=== PATIENT | male | born 1950 | race Caucasian/White ===

== ENCOUNTER 2018-04-26 09:42 | Emergency (ER) | payer MEDICARE ==
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
[2018-04-26] MEDS ORDERED: DEXAMETHASONE 10 MG/ML VIAL PO STA (10:37)
[2018-04-26] MEDS ORDERED: MECLIZINE 12.5 MG TABLET PO STA (10:37)
[2018-04-26 10:59] LABS: BASOPHILS # (AUTO) 0.1 10^3/uL (0.0-0.1); BASOPHILS % (AUTO) 1.5 %; EOSINOPHILS # (AUTO) 0.3 10^3/uL (0.0-0.7); EOSINOPHILS % (AUTO) 3.9 %; LYMPHOCYTES # (AUTO) 2.2 10^3/uL (1.5-3.5); LYMPHOCYTES % (AUTO) 29.5 %; MEAN CORPUSCULAR HGB CONC 34.7 g/dL (32.0-36.0); MEAN CORPUSCULAR VOLUME 92.3 fL (80.0-94.0); MEAN PLATELET VOLUME 7.6 fL (7.4-11.4); MONOCYTES # (AUTO) 0.4 10^3/uL (0.0-1.0); MONOCYTES % (AUTO) 5.9 %; NEUTROPHILS # (AUTO) 4.3 10^3/uL (1.5-6.6); NEUTROPHILS % (AUTO) 59.2 %; PLT - PLATELET COUNT 251 10^3/uL (130-450); RED BLOOD COUNT 5.01 10^6/uL (4.70-6.10); RED CELL DISTRIBUTION WIDTH 12.8 % (12.0-15.0); WHITE BLOOD COUNT 7.3 x10^3/uL (4.8-10.8)
[2018-04-26 11:09] LABS: ALBUMIN 4.6 g/dL (3.2-5.5); ALBUMIN/GLOBULIN RATIO 1.1 (1.0-2.2); BILIRUBIN,TOTAL 0.8 mg/dL (0.2-1.0); CALCIUM 9.2 mg/dL (8.5-10.3); CREATININE 0.8 mg/dL (0.6-1.2); MAGNESIUM 1.9 mg/dL (1.7-2.8); TOTAL PROTEIN 8.7 g/dL (6.7-8.2)
--- NOTE | 2018-04-26 11:52 | CT Report ---
Reason: intermittent Procedure Date: 04/26/2018 Accession Number: [id number] / [id number] Procedure: CT - Head W/O CPT Code: FULL RESULT: EXAM: CT HEAD EXAM DATE: 04/26/2018 11:31 AM. CLINICAL HISTORY: Intermittent. COMPARISON: None. TECHNIQUE: Multiaxial CT images were obtained from the foramen magnum to the vertex. Reformats: Coronal. IV contrast: None. In accordance with CT protocol optimization, one or more of the following dose reduction techniques were utilized for this exam: automated exposure control, adjustment of mA and/or KV based on patient size, or use of iterative reconstructive technique. FINDINGS: Parenchyma: No intraparenchymal hemorrhage. No evidence of mass, midline shift, or CT findings of infarction. Mercado-white differentiation is distinct. There is mild parenchymal volume loss Extraaxial Spaces: Normal for age. No subdural or epidural collections identified. Ventricles: Normal in size and position. Sinuses and Orbits: Imaged paranasal sinuses and orbits show no significant abnormality. Likely postsurgical change of left mastoids. Bones: No evidence of fracture or calvarial defect. IMPRESSION: No evidence of acute intracranial process. Likely postsurgical left mastoids. Correlate clinically. RADIA
[2018-04-26 12:03] VITALS: BP 130/86
== END 2018-04-26 12:16 | disposition home or self-care (01) ==
LOC: ED 09:42
DX: H81.10 Benign paroxysmal vertigo, unspecified ear (principal); T63.441A Toxic effect of venom of bees, accidental (unintentional), initial encounter; R94.31 Abnormal electrocardiogram [ECG] [EKG]
CPT/HCPCS: 36415; 70450; 80053; 83690; 83735; 84443; 85025; 93005; 99283; A9270

== ENCOUNTER 2018-10-29 07:38 | Day surgery (SDC) | payer OTHER ==
[2018-10-29] MEDS ORDERED: LACTATED RINGERS 1,000 ML IV ONE (08:06)
[2018-10-29] MEDS ORDERED: fentaNYL 250 MCG/5 ML VIAL IVP ONE (08:51)
[2018-10-29] MEDS ORDERED: MIDAZOLAM 2 MG/2 ML VIAL IVP ONE (08:51)
[2018-10-29 09:48] VITALS: BP 106/67
== END 2018-10-29 07:39 | disposition home or self-care (01) ==
LOC: SDS 07:38
PROVIDERS: ATTEND Surgery
PROC: 0DBL8ZX Excision of Transverse Colon, Via Natural or Artificial Opening Endoscopic, Diagnostic (ICD-10-PCS; 2018-10-29)
PROC: 0DBH8ZX Excision of Cecum, Via Natural or Artificial Opening Endoscopic, Diagnostic (ICD-10-PCS; principal; 2018-10-29 08:45)
DX: Z12.11 Encounter for screening for malignant neoplasm of colon (principal); Q27.33 Arteriovenous malformation of digestive system vessel; D12.6 Benign neoplasm of colon, unspecified; K64.8 Other hemorrhoids; K55.8 Other vascular disorders of intestine; K57.30 Diverticulosis of large intestine without perforation or abscess without bleeding; I10 Essential (primary) hypertension; F17.210 Nicotine dependence, cigarettes, uncomplicated
CPT/HCPCS: 45380; J3010; J7120

== ENCOUNTER 2020-01-23 11:14 | Emergency (ER) | payer OTHER ==
[2020-01-23 11:54] LABS: BASOPHILS # (AUTO) 0.1 10^3/uL (0.0-0.1); BASOPHILS % (AUTO) 0.8 %; EOSINOPHILS # (AUTO) 0.1 10^3/uL (0.0-0.7); EOSINOPHILS % (AUTO) 1.5 %; HGB - HEMOGLOBIN 14.6 g/dL (14.0-18.0); LYMPHOCYTES # (AUTO) 1.2 10^3/uL (1.5-3.5); LYMPHOCYTES % (AUTO) 13.7 %; MEAN CORPUSCULAR HEMOGLOBIN 30.2 pg (27.0-31.0); MEAN CORPUSCULAR HGB CONC 33.2 g/dL (32.0-36.0); MEAN CORPUSCULAR VOLUME 90.9 fL (80.0-94.0); MONOCYTES # (AUTO) 0.6 10^3/uL (0.0-1.0); MONOCYTES % (AUTO) 6.6 %; NEUTROPHILS # (AUTO) 6.5 10^3/uL (1.5-6.6); NEUTROPHILS % (AUTO) 77.2 %; PLT - PLATELET COUNT 184 10^3/uL (130-450); RED BLOOD COUNT 4.84 10^6/uL (4.70-6.10); RED CELL DISTRIBUTION WIDTH 12.9 % (12.0-15.0); WHITE BLOOD COUNT 8.5 x10^3/uL (4.8-10.8)
--- NOTE | 2020-01-23 11:55 | ED Physician Documentation ---
History of Present Illness - Stated complaint Stated Complaint: UPPER ABD PX/WEAKNESS - Chief complaint Chief Complaint: Abd Pain - History obtained from History obtained from: Patient - History of Present Illness Pain level max: 6 Pain level now: 3 Worsened by: Nothing makes it worse - Additonal information Additional information: 69-year-old male presents to the emergency department with epigastric pain for the past 3 to 6 months. He states it is intermittent, comes and goes. Saw his doctor via video today and was sent to the emergency department for evaluation. No vomiting. Intermittent. Occasionally the pain radiates to the left abdomen. Seems to be better with eating. Has not had similar symptoms previously. No changes in his medications. Does smoke cigarettes but does not use alcohol. Review of Systems Ten Systems: 10 systems reviewed and negative Constitutional: denies: Fever, Chills PD PAST MEDICAL HISTORY - Past Medical History Cardiovascular: None Respiratory: None Neuro: None Endocrine/Autoimmune: None HEENT: Other Derm: Psoriasis - Past Surgical History Past Surgical History: Yes HEENT: Other - Present Medications Home Medications: Ambulatory Orders Medication Instructions Recorded Confirmed Etanercept [Enbrel] 10/29/18 Metoprolol Tartrate 1 BID 10/29/18 amLODIPine [Norvasc] 1 DAILY 10/29/18 - Allergies Allergies/Adverse Reactions: Allergies Allergy/AdvReac Type Severity Reaction Status Date / Time opioids AdvReac Unknown Uncoded 10/29/18 08:01 - Social History Does the pt smoke?: Yes Smoking Status: Current every day smoker Does the pt drink ETOH?: No Does the pt have substance abuse?: No - Immunizations Immunizations are current?: Yes - POLST Patient has POLST: No PD ED PE NORMAL - Vitals Vital signs reviewed: Yes - General General: Alert and oriented X 3, No acute distress - HEENT HEENT: Moist mucous membranes - Neck Neck: Supple, no meningeal sign - Cardiac Cardiac: RRR - Respiratory Respiratory: No respiratory distress, Clear bilaterally - Abdomen Abdomen: Soft, Non tender, Non distended - Back Back: No spinal TTP - Derm Derm: Warm and dry - Extremities Extremities: No edema - Neuro Neuro: Alert and oriented X 3 - Psych Psych: Normal mood, Normal affect Results - Vitals Vitals: Vital Signs - 24 hr 01/23/20 01/23/20 11:20 13:24 Temperature 36.3 C L Heart Rate 96 90 Respiratory 16 16 Rate Blood Pressure 145/84 H 149/97 H O2 Saturation 100 98 Oxygen O2 Source Room air - Labs Labs: Laboratory Tests 01/23/20 01/23/20 01/23/20 11:35 11:35 11:35 WBC 8.5 RBC 4.84 Hgb 14.6 Hct 44.0 MCV 90.9 MCH 30.2 MCHC 33.2 RDW 12.9 Plt Count 184 MPV 10.0 Neut # (Auto) 6.5 Lymph # (Auto) 1.2 L [place] # (Auto) 0.6 Eos # (Auto) 0.1 Baso # (Auto) 0.1 Absolute Nucleated RBC 0.00 Nucleated RBC % 0.0 PT 14.7 H INR 1.3 H Sodium 136 Potassium 3.6 Chloride 102 Carbon Dioxide 27 Anion Gap 7.0 BUN 20 Creatinine 0.8 Estimated GFR (MDRD) 96 Glucose 150 H Calcium 9.0 Total Bilirubin 1.0 AST 31 ALT 26 Alkaline Phosphatase 154 H Total Protein 8.1 Albumin 4.2 Globulin 3.9 Albumin/Globulin Ratio 1.1 Lipase 43 - Rads (name of study) CT abdomen pelvis Radiology: Prelim report reviewed, EMP read contemporaneously PD MEDICAL DECISION MAKING - ED course Complexity details: reviewed results, re-evaluated patient, considered differential, d/w patient, d/w middleware consultant ED course: 69-year-old male with abdominal pain for the past several months. History of hep C, but states he completed treatment for this. Found to have a large liver mass, likely hepatocellular carcinoma. Also has a portal vein thrombosis. Discussed the case with his primary care provider, Dr. Urena at the [facility] who will arrange follow-up today and call him this afternoon. Patient is comfortable with this plan. We will hold anticoagulation until oncology has a chance to review the chart to determine if they would like a biopsy before anticoagulation starts. Patient counseled regarding signs and symptoms for which I believe and urgent re-evaluation would be necessary. Patient with good understanding of and agreement to plan and is comfortable going home at this time This document was made in part using voice recognition software. While efforts are made to proofread this document, sound alike and grammatical errors may occur. Departure - Departure Disposition: 01 Home, Self Care Clinical Impression: Liver mass Condition: Good Instructions: ED Abdominal Pain Unkn Cause Follow-Up: RUBY GOETZ MD [Physician No Access] - Ruby Goetz MD [Primary Care Provider] - Comments: I spoke with Dr. Goetz today, she will call you this afternoon with [facility]. Return if you worsen. Follow-up with her for further care. 1. Massive heterogeneous lesion in the medial right lobe of the liver measuring at 12.6 cm. Thrombus in the middle hepatic vein. Findings most compatible with hepatocellular carcinoma. -Liver MRI would be helpful for further characterization. 2. Subcentimeter satellite lesion in the inferior right lobe of liver. 3. Minimal intrahepatic biliary ductal dilatation. 4. Mild reticulation at the lung bases. This raises the possibility of interstitial lung disease. Less likely pulmonary edema. 5. Mild splenomegaly. Discharge Date/Time: 01/23/20 13:34
[2020-01-23 12:06] LABS: ALBUMIN 4.2 g/dL (3.2-5.5); ALBUMIN/GLOBULIN RATIO 1.1 (1.0-2.2); CREATININE 0.8 mg/dL (0.6-1.2); TOTAL PROTEIN 8.1 g/dL (6.7-8.2)
[2020-01-23] MEDS ORDERED: IOVERSOL 320 100 ML VIAL IVP ONE ×2 (12:17→14:05)
--- NOTE | 2020-01-23 12:58 | CT Report ---
Reason: upper abd pain Procedure Date: 01/23/2020 Accession Number: [id number] / [id number] Procedure: CT - Abdomen/Pelvis W CPT Code: Final Report FULL RESULT: PROCEDURE: Abdomen/Pelvis W INDICATIONS: upper abd pain CONTRAST: IV CONTRAST: Optiray 320 ml: 100 PO CONTRAST: *NO PO CONTRAST TECHNIQUE: 5 mm thick sections acquired from the diaphragms to the symphysis. 5 mm thick coronal and sagittal reformats were acquired. For radiation dose reduction, the following was used: automated exposure control, adjustment of mA and/or kV according to patient size. Delayed images were acquired through the liver. COMPARISON: None. FINDINGS: Image quality: Excellent. ABDOMEN: Lung bases: Mild reticulation at the lung bases. Right lower lobe juxtapleural nodule measuring 3 mm, (4/20). Left lower lobe pulmonary nodule measuring 2 mm, (3/17). Heart size is normal. Solid organs: Massive heterogeneous hypodense lesion in the medial right lobe of the liver measuring approximately 12.6 x 12.4 x 11.7 cm, (3/23 and 6/19). It is uncertain if this is one lesion or conglomerate of several lesions. Probable satellite lesion in the inferior right lobe liver measuring 0.7 cm, (3/32). No subcapsular retraction. There appears to be thrombus in the middle hepatic vein. Probable small dilated biliary ducts. There is mass effect on the portal vein. No filling defect in the portal vein is identified. Gallbladder is nondistended. No calcified gallstones seen. Extrahepatic bile duct appears normal. Pancreas enhances normally. Spleen is mildly enlarged measuring 13.8 cm in craniocaudal dimension, (6/35). No definite adrenal nodules. Kidneys demonstrate normal size and enhancement, without hydronephrosis. Peritoneum and bowel: No bowel obstruction. Trace stranding or fluid in the paracolic gutters, right greater than left. No significant ascites. Nodes and vessels: No retroperitoneal or mesenteric adenopathy by size criteria. Aorta and inferior vena cava are normal in size. Miscellaneous: No ventral hernias. PELVIS: Genitourinary: Bladder wall thickness is normal. Prostatomegaly. Miscellaneous: No inguinal hernias or adenopathy. Bones: No suspicious bony lesions. L5 Schmorl's node. Moderate generative change. No vertebral body compression fractures. IMPRESSION: 1. Massive heterogeneous lesion in the medial right lobe of the liver measuring at 12.6 cm. Thrombus in the middle hepatic vein. Findings most compatible with hepatocellular carcinoma. -Liver MRI would be helpful for further characterization. 2. Subcentimeter satellite lesion in the inferior right lobe of liver. 3. Minimal intrahepatic biliary ductal dilatation. 4. Mild reticulation at the lung bases. This raises the possibility of interstitial lung disease. Less likely pulmonary edema. 5. Mild splenomegaly. Reviewed by: Mesfin Mcduffie MD on 01/23/2020 12:57 PM PDT Approved by: Mesfin Mcduffie MD on 01/23/2020 12:57 PM PDT Station ID: [id number]
[2020-01-23 13:23] LABS: INR 1.3 (0.8-1.2); PT - PROTHROMBIN TIME 14.7 secs (9.9-12.6)
[2020-01-23 13:34] VITALS: BP 149/97
== END 2020-01-23 13:34 | disposition home or self-care (01) ==
LOC: ED 11:14
DX: R16.0 Hepatomegaly, not elsewhere classified (principal); I81 Portal vein thrombosis; B19.20 Unspecified viral hepatitis C without hepatic coma; F17.210 Nicotine dependence, cigarettes, uncomplicated
CPT/HCPCS: 36415; 74177; 80053; 83690; 85025; 85610; 99284; Q9967

== ENCOUNTER 2020-10-15 10:34 | Outpatient (CLI) | payer OTHER ==
--- NOTE | 2020-10-16 12:10 | Mammography Report ---
MALE BILATERAL DIGITAL DIAGNOSTIC MAMMOGRAM 3D/2D: 10/15/2020 CLINICAL: Palpable left breast lump. Baseline exam. No prior exams were available for comparison. There is gynecomastia in the left breast in the sub-areolar depth that correlates with palpable area. No significant masses, calcifications, or other findings are seen in either breast. IMPRESSION: INCOMPLETE: NEEDS ADDITIONAL IMAGING EVALUATION US will be performed and dictated separately. No mammographic focal asymetry or mass. This exam was interpreted at Station ID: [id number]. NOTE: For mammograms, a report in lay terms will be sent to the patient. Approximately 15% of breast malignancies will not be visualized mammographically. In the management of a palpable breast mass, a negative mammogram must not discourage biopsy of a clinically suspicious lesion. Electronically Signed By: Augustus Randhawa acr/:10/15/2020 11:18:47 ACR BI-RADS Category 0: Incomplete 3340F PARENCHYMAL PATTERN: (F) - The breast(s) demonstrate(s) diffuse fatty replacement. BI-RADS CATEGORY: (0) - 0 Ultrasound [id number] Immediate follow-up LATERALITY: (L)
--- NOTE | 2020-10-16 12:10 | Ultrasound Report ---
LIMITED ULTRASOUND OF LEFT BREAST: 10/15/2020 CLINICAL: Palpable left breast lump. Comparison is made to exam dated: 10/15/2020 mammogram - [facility]. Ultrasound of the left breast retroareolar was performed. There is gynecomastia in the left breast in the sub-areolar depth that correlates with mammography. NO focal mass or asymetry. IMPRESSION: BENIGN There is no sonographic evidence of malignancy. Recommend clinical followup. Follow-up with ACR/ACS guidelines. This exam was interpreted at Station ID: [id number]. Electronically Signed By: Augsutus Randhawa acr/:10/15/2020 11:46:37 Ultrasound BI-RADS: 2 Benign BI-RADS CATEGORY: (2) - 2 Unspecified - other no recall LATERALITY: (B)
== END 2020-10-15 10:35 | disposition home or self-care (01) ==
LOC: DI 10:34
PROVIDERS: ATTEND Internal Medicine Medical Oncology
DX: N62 Hypertrophy of breast (principal)

== ENCOUNTER 2022-02-17 20:19 | Emergency (ER) | payer OTHER ==
[2022-02-17 20:33] VITALS: BP 154/71
[2022-02-17 20:48] LABS: BASOPHILS % (AUTO) 0.9 %; EOSINOPHILS % (AUTO) 0.9 %; HCT - HEMATOCRIT 39.7 % (42.0-52.0); HGB - HEMOGLOBIN 13.4 g/dL (14.0-18.0); LYMPHOCYTES # (AUTO) 0.5 10^3/uL (1.5-3.5); LYMPHOCYTES % (AUTO) 16.1 %; MEAN CORPUSCULAR HEMOGLOBIN 35.5 pg (27.0-31.0); MEAN CORPUSCULAR HGB CONC 33.8 g/dL (32.0-36.0); MEAN CORPUSCULAR VOLUME 105.3 fL (80.0-94.0); MEAN PLATELET VOLUME 9.5 fL (7.4-11.4); MONOCYTES # (AUTO) 0.6 10^3/uL (0.0-1.0); MONOCYTES % (AUTO) 17.1 %; NEUTROPHILS # (AUTO) 2.1 10^3/uL (1.5-6.6); NEUTROPHILS % (AUTO) 64.7 %; PLT - PLATELET COUNT 163 10^3/uL (130-450); RED BLOOD COUNT 3.77 10^6/uL (4.70-6.10); RED CELL DISTRIBUTION WIDTH 13.4 % (12.0-15.0); WHITE BLOOD COUNT 3.2 x10^3/uL (4.8-10.8)
[2022-02-17 20:55] LABS: INR 1.4 (0.8-1.2)
[2022-02-17 21:02] LABS: ALBUMIN 3.8 g/dL (3.2-5.5); ALBUMIN/GLOBULIN RATIO 0.9 (1.0-2.2); BILIRUBIN,TOTAL 0.8 mg/dL (0.2-1.0); CREATININE 0.9 mg/dL (0.6-1.2); MAGNESIUM 1.8 mg/dL (1.7-2.8); POTASSIUM 3.9 mmol/L (3.5-5.0)
== END 2022-02-17 21:32 | disposition left against medical advice (07) ==
LOC: ED 20:19
DX: Z53.21 Procedure and treatment not carried out due to patient leaving prior to being seen by health care provider (principal)
CPT/HCPCS: 36415; 80053; 82140; 83690; 83735; 85025; 85610

== ENCOUNTER 2022-04-22 19:03 | Outpatient (CLI) | payer OTHER | END 2022-04-22 19:04 | disposition EMS.NT | LOC: EMS 19:03 | DX: I95.9 Hypotension, unspecified (principal) ==